=== PATIENT | female | born 1955 | race Caucasian/White ===

== ENCOUNTER 2019-12-15 08:28 | Outpatient (CLI) | payer OTHER, SELFPAY ==
--- NOTE | 2019-12-15 08:53 | ECG_ITS ---
Measurements Intervals [place] Rate: 73 P: 8 WV: 159 QRS: -28 QRSD: 90 T: 22 QT: 368 QTc: 406 Interpretive Statements SINUS RHYTHM INCOMPLETE RIGHT BUNDLE BRANCH BLOCK BORDERLINE ECG Electronically Signed On 12-15-2019 9:07:21 CDT by Robbi Cota D.O.
== END 2019-12-15 08:29 | disposition home or self-care (01) ==
PROVIDERS: PCP Family Medicine; Visit Provider Nurse Practitioner Family
DX: R00.2 Palpitations (principal)
CPT/HCPCS: 93005

== ENCOUNTER 2020-01-05 07:29 | Outpatient (CLI) | payer OTHER, SELFPAY ==
--- NOTE | 2020-01-05 07:55 | ECHO_ITS ---
Patient Info Name: Jennifer Samayoa Age: 64 years : 1955 Gender: Female Ht: 62 in Wt: 163 lbs BSA: 1.82 m2 HR: 80 bpm BP: 120 / 72 mmHg Heart Rhythm: Sinus Rhythm Technical Quality: Good Exam Date: 01/05/2020 8:10 AM Exam Location: [facility] Pulmonary Patient Status: Outpatient Admit Date: 01/05/2020 Staff Ordering Physician: Laurie Davila NP [employer] Manager: Stanford Yan RDCS Attending Provider: Laurie Davila NP Referring Physician: Lola SELLERS; Exam Type: CA echo doppler color flow Study Info Indications R94.31 - Abnormal electrocardiogram ECG EKG Complete two-dimensional, color flow and Doppler transthoracic echocardiogram is performed. Strain analysis performed. History/Risk Factors Abnormal EKG. Summary 1. Complete two-dimensional, color flow and Doppler transthoracic echocardiogram is performed. Recommendations * Normal LV size, mild LVH, normal LV systolic function; ejection fraction 60-65%. Grade 1 diastolic dysfunction. Global longitudinal strain-16%. No significant valvular abnormality. Unable to assess RVSP due to inadequate TR jet velocity. Sinus rhythm. Left Ventricle Left ventricular chamber dimension is normal. Left ventricular systolic function is normal, estimated at 60-65%. There is mildly increased left ventricular wall thickness. Left ventricular septal wall motion is normal. The left ventricular diastolic function is grade I diastolic dysfunction. Right Ventricle Right ventricular chamber dimension is normal. Right ventricular systolic function is normal. Left Atria Left atrial chamber dimension is normal. Right Atria Right atrial chamber dimension is normal. Aortic Valve The aortic valve is normal. There is no aortic valve sclerosis. There is no aortic valve stenosis. There is no aortic valve regurgitation. Pulmonic Valve The pulmonic valve is normal. There is trace pulmonic regurgitation. Mitral Valve The mitral valve has normal leaflets. There is no mitral valve stenosis. There is no mitral valve regurgitation. Tricuspid Valve The tricuspid valve leaflets are normal. There is trace tricuspid valve regurgitation. Pericardium/Pleural The pericardium appears normal. There is no pericardial effusion. Inferior Vena Cava Normal inferior vena cava with >50% collapse upon inspiration consistent with normal right atrial pressure, 5 mmHg. Aorta The aortic root size at the sinus of Valsalva is normal. The prox ascending aorta size is normal. Left Ventricular Outflow Tract Name Value Normal LVOT 2D LVOT Diameter 2.0 cm LVOT Doppler LVOT Peak Gradient 4 mmHg LVOT Mean Gradient 3 mmHg LVOT VTI 20 cm LVOT VTI/AV VTI Ratio 0.7 LVOT Stroke Volume 59 ml LVOT CO 4.5 l/min LVOT CI 2.4 l/min/m2 Mitral Valve N
--- NOTE | 2020-01-05 07:56 | EST_ITS ---
Patient Info Name: Jennifer Samayoa Age: 64 years : 1955 Gender: Female Ht: 62 in Wt: 163 lbs BSA: 1.82 m2 Heart Rhythm: Sinus Rhythm Exam Date: 01/05/2020 9:31 AM Exam Location: [facility] Stress Patient Status: Outpatient Admit Date: 01/05/2020 Staff Ordering Physician: Laurie Davila NP Attending Provider: Laurie Davila NP Exercise Technologist: Alfred Grmaajo RDCS, RT Exam Type: CA stress test treadmill Study Info An exercise stress test was performed. Summary 1. No abnormal ST/T wave changes with exercise. 2. Occasional PVCs noted during stress. 3. Maximal treadmill stress ECG study achieving 114% of age predicted maximum heart rate and 7.7 METS at peak exercise. 4. Average exercise capacity for age. 5. Hypertensive blood pressure response to exercise. 6. [place] treadmill score +6 indicating low risk for adverse cardiovascular events over the next 5 years. Protocol: Flo Stress ECG Details Stage: REST Duration (min): 1 min : 14 sec Speed (mph): 0.0 Grade (%): 0 HR (bpm): 76 SBP (mmHg): 114 DBP (mmHg): 68 METS: --- Stage: REST Duration (min): 9 min : 34 sec Speed (mph): 0.0 Grade (%): 0 HR (bpm): 90 SBP (mmHg): 114 DBP (mmHg): 68 METS: --- Stage: STAGE 1 Duration (min): 1 min : 0 sec Speed (mph): 1.7 Grade (%): 10 HR (bpm): 117 SBP (mmHg): 114 DBP (mmHg): 68 METS: --- Stage: STAGE 1 Duration (min): 2 min : 0 sec Speed (mph): 1.7 Grade (%): 10 HR (bpm): 130 SBP (mmHg): 114 DBP (mmHg): 68 METS: --- Stage: STAGE 1 Duration (min): 3 min : 0 sec Speed (mph): 1.7 Grade (%): 10 HR (bpm): 139 SBP (mmHg): 172 DBP (mmHg): 65 METS: --- Stage: STAGE 2 Duration (min): 1 min : 0 sec Speed (mph): 2.5 Grade (%): 12 HR (bpm): 155 SBP (mmHg): 172 DBP (mmHg): 65 METS: --- Stage: STAGE 2 Duration (min): 2 min : 0 sec Speed (mph): 2.5 Grade (%): 12 HR (bpm): 165 SBP (mmHg): 213 DBP (mmHg): 76 METS: --- Stage: STAGE 2 Duration (min): 3 min : 0 sec Speed (mph): 2.5 Grade (%): 12 HR (bpm): 171 SBP (mmHg): 204 DBP (mmHg): 90 METS: --- Stage: STAGE 3 Duration (min): 0 min : 23 sec Speed (mph): 3.4 Grade (%): 14 HR (bpm): 177 SBP (mmHg): 204 DBP (mmHg): 90 METS: --- Stage: RECOVERY Duration (min): 0 min : 36 sec Speed (mph): 0.0 Grade (%): 0 HR (bpm): 166 SBP (mmHg): 213 DBP (mmHg): 85 METS: --- Stage: RECOVERY Duration (min): 1 min : 36 sec Speed (mph): 0.0 Grade (%): 0 HR (bpm): 137 SBP (mmHg): 213 DBP (mmHg): 85 METS: --- Stage: RECOVERY Duration (min): 2 min : 36 sec Speed (mph): 0.0 Grade (%): 0 HR (bpm): 114 SBP (mmHg): 213 DBP (mmHg): 85 METS: --- Stage: RECOVERY Duration (min): 3 mi
== END 2020-01-05 07:30 | disposition home or self-care (01) ==
PROVIDERS: PCP Family Medicine; Visit Provider Nurse Practitioner Family
DX: R94.31 Abnormal electrocardiogram [ECG] [EKG] (principal)
CPT/HCPCS: 93017; 93306

== ENCOUNTER → 2020-03-10 12:33 | Outpatient (CLI) | payer OTHER, SELFPAY ==
--- NOTE | ~2020-03-10 | MM_ITS ---
EXAMINATION: MM screening loraine BI w beth HISTORY: Screening TECHNIQUE: Craniocaudal and mediolateral oblique 3-D tomosynthesis images were obtained and synthetic 2-D images were generated. CAD analysis was submitted and interpreted. COMPARISON: No prior mammogram is available for comparison at this institution. BREAST PARENCHYMAL COMPOSITION: There are scattered areas of fibroglandular density. FINDINGS: There is no evidence of suspicious mass, calcification, or architectural distortion to sugg est malignancy in either breast. There has been no suspicious interval change. IMPRESSION: 1. No mammographic evidence of malignancy. 2. Recommend routine screening mammography in one year. BI-RADS Category 1: Negative Reviewed, dictated and finalized at location A. HEALTH OUTREACH COORDINATOR
--- NOTE | ~2020-03-10 | DEXA_ITS ---
Bone Density Report Name: Jennifer Samayoa Age: 64 Sex: Female Ethnicity: White Date of : 1955 Indication: postmenopausal; screening for osteoporosis; hysterectomy; Referring Provider: Laurie Davila Study: Bone densitometry was performed. Exam Date: March 10, 2020 Accession number: [id number] Bone Density: Region BMD T-score Z-score Classification AP Spine (L1-L4) 0.960 -0.8 1.1 Normal Femoral Neck (Left) 0.675 -1.6 0.0 Osteopenia Total Hip (Left) 0.792 -1.2 0.1 Osteopenia Femoral Neck (Right) 0.720 -1.2 0.4 Osteopenia Total Hip (Right) 0.883 -0.5 0.8 Normal Total Hip Mean 0.838 -0.9 0.5 Normal World Health Organization criteria for BMD impression classify patients as: Normal (T-score at or above -1.0), Osteopenia (T-score between -1.0 and -2.5), or Osteoporosis (T-score at or below -2.5). 10-year Fracture Risk(1): Major Osteoporotic Fracture 9.3% Hip Fracture 1.1% Reported Risk Factors: [place] (), Neck BMD=0.675, BMI=27.9 (1) FRAX(R) Version 3.08. Fracture probability calculated for an untreated patient. Fracture probability may be lower if the patient has received treatment. Clinical Information Provided by Patient: Has the following medical conditions: Hysterectomy Patient maximum height was 62.0 Menopause Age: 26 No regular weight bearing exercise Does not regularly consume dairy products Drinks caffeinated beverages Onset of menses at age 6 Number of children 0 Impression: The patient has low bone mass, based on the Left Femoral Neck T-score. The patient has an estimated ten-year risk of hip fracture of 1.1% and an estimated ten-year risk of major fracture of 9.3%, based on the WHO FRAX algorithm. Discussion: BONE DENSITY IS LOW AT ONE OR MORE SKELETAL SITES. This patient's lowest T-score is low at one or more skeletal sites. It meets the World Health Organization's (WHO) criteria for ?low bone mass? (T-score between -1.0 and -2.5). The patient's 10-year risk of fracture as calculated by FRAX is less than the threshold where pharmacological therapy is recommended by the National Osteoporosis Foundation (NOF). However, all treatment decisions require clinical judgment and consideration of individual patient factors, including patient preferences, comorbidities, previous drug use, risk factors not captured in the FRAX model (e.g., frailty, falls, vitamin D deficiency, increased bone turnover, interval significant decline in bone density) and possible under or overestimation of fracture risk by FRAX. The patient should follow a healthful lifestyle (good nutrition with adequate calcium and vitamin D, and appropriate weight-bearing exercise). Follow-Up: Consider repeating this study in 2 to 3 years to reassess this patient's status, or sooner if there is some new
== END ==
PROVIDERS: PCP Nurse Practitioner Family; Visit Provider Nurse Practitioner Family
DX: Z12.31 Encounter for screening mammogram for malignant neoplasm of breast (principal); Z13.820 Encounter for screening for osteoporosis; M85.852 Other specified disorders of bone density and structure, left thigh; M85.851 Other specified disorders of bone density and structure, right thigh
CPT/HCPCS: 77063; 77067; 77080

== ENCOUNTER 2023-03-05 01:09 | Day surgery (SDC) | payer MEDICARE, OTHER, SELFPAY ==
[2023-03-04 10:47] VITALS: BMI 25.0
[2023-03-05 09:13] VITALS: BP 129/83; PULSE 89; RESP 17; TEMP 35.5; O2SAT 100; BMI 25.0
[2023-03-05] MEDS: LACTATED RINGERS 1,000 ML 150 ML IV CONT (09:22)
[2023-03-05 09:23] LABS: Glucose Point of Care 75 mg/dl (65-105)
--- NOTE | 2023-03-05 09:41 | PM.HPGS ---
History of Present Illness History of Present Illness Consent: Risks, benefits, and alternatives have been discussed and questions answered. Patient agrees to proceed with procedure. Chief complaint: dysphagia Narrative: Jennifer Samayoa is a 67 year old female with dysphagia, having sometimes hard times to swallow large pills. Never had EGD Review of Systems Constitutional: Constitutional: Denies headache(s) and Denies weakness Eyes: Eyes: Denies blurry vision ENT: Reports Normal hearing present, Denies headache(s) and Denies neck pain Cardiovascular: Cardiovascular: Denies chest pain and Denies dyspnea Respiratory: Respiratory: Denies dyspnea Gastrointestinal: Gastrointestinal: Reports no additional gastrointestinal complaints Genitourinary: Genitourinary: Denies dysuria Musculoskeletal: Musculoskeletal: Denies neck pain Integumentary/Breasts: Skin/Breast: Denies dry skin Neurologic: Reports Normal hearing present, Denies headache(s) and Denies weakness Psychiatric: Psychiatric: Denies anxiety Endocrine: Endocrine: Denies change in body appearance Hematologic/Lymphatic: Hematologic/Lymphatic: Denies easy bleeding Allergic/Immunologic: Allergic/Immunologic: Denies urticaria PMFSH Past Medical History Medical History Atypical mole BMI 24.0-24.9, adult BMI 25.0-25.9,adult BMI 26.0-26.9,adult Family History Family History Mother Hypertension Family history of arthritis Cerebrovascular accident Dementia Father Family history of heart disease in male family member before age 55 Grandparent Diabetes mellitus Sibling Diabetes mellitus Social History Social History Smoking status: Never smoker Second hand tobacco smoke exposure: No Alcohol intake: former Substance use: never Substance use type: does not use Lack of Transportation: No Lack of Food: Never True Current Housing: I Have Housing Concerned About Future Housing: No Difficulty Paying Gas/Electric Bills: No Difficulty Paying for Meds: No Currently Unemployed: No Education: High School Diploma/GED Difficulty w/ Childcare or Family Care: No Living arrangements: alone Occupation/Education: retired Additional occupation/education comments: [employer] Gender identity (if verbalized by the patient): Female Meds Home Medications and Allergies Home Medications Medication Instructions Recorded Confirmed Type insulin detemir U-100 100 unit/mL 70 unit subcut DAILY 04/08/19 03/05/23 History (3 mL) subcutaneous pen (Levemir FlexTouch U-100 Insulin) levothyroxine 50 mcg tablet 50 mcg PO DAILY 04/08/19 03/05/23 History (Synthroid) metformin 1,000 mg tablet 1,000 mg PO BID 04/08/19 03/05/23 History semaglutide 1 mg/dose (2 mg/1.5 1 mg subcut WEEKLY 04/08/19 03/05/23 History mL) subcutaneous pen injector (Ozempic) icosapent ethyl 1 gram capsule 2 g PO BID #1 cap 12/14/19 03/05/23 Rx (Vascepa) atorvastatin 20 mg tablet 20 mg PO DAILY 03/21/22 03/05/23 History furosemide 20 mg tablet See Rx Instructions .Route 11/22/22 03/05/23 Rx .COMPLEX #90 tabs lisinopril 10 1 tablet PO DAILY #90 tabs 11/22/22 03/05/23 Rx mg-hydrochlorothiazide 12.5 mg tablet Allergies Allergy/AdvReac Type Severity Reaction Status Date / Time No Known Allergies Allergy Verified 03/05/23 09:11 Vital Signs Vital Signs - 24 hr 03/05/23 09:13 Temperature 96 F L Pulse Rate 89 Respiratory Rate 17 Blood Pressure 129/83 Pulse Oximetry 100 Oxygen Delivery Room Air Exam Const: General: comfortable and no acute distress HENMT: Face/Nose/Sinus: Normal nares present Eyes: General: appearance normal, both eyes and all related structures Neck: Neck: no JVD Resp: Auscultation: clear to auscultation bi
--- NOTE | 2023-03-05 09:42 | WPDANESEPPF ---
Anes - Initial Pre Proc Eval Procedure: Operation Date: 03/05/23 10:30 Proposed Procedures p Esophagogastroduodenoscopy - Bernard Monk MD Date/Time: 03/05/23 09:42 Surgeon: Bernard Monk MD Pre Op Diagnosis: dysphagia Patient Data Age: 67 Gender: F Height: 1.57 m Weight: 62.2 kg Last Vital Signs Temp 96 F L 03/05/23 09:13 Pulse 89 03/05/23 09:13 Resp 17 03/05/23 09:13 BP 129/83 03/05/23 09:13 Pulse Ox 100 03/05/23 09:13 O2 Del Method Room Air 03/05/23 09:13 Allergies Allergy/AdvReac Type Severity Reaction Status Date / Time No Known Allergies Allergy Verified 03/05/23 09:11 Home Medications Medication Instructions Recorded Confirmed Type insulin detemir U-100 100 unit/mL 70 unit subcut DAILY 04/08/19 03/05/23 History (3 mL) subcutaneous pen (Levemir FlexTouch U-100 Insulin) levothyroxine 50 mcg tablet 50 mcg PO DAILY 04/08/19 03/05/23 History (Synthroid) metformin 1,000 mg tablet 1,000 mg PO BID 04/08/19 03/05/23 History semaglutide 1 mg/dose (2 mg/1.5 1 mg subcut WEEKLY 04/08/19 03/05/23 History mL) subcutaneous pen injector (Ozempic) icosapent ethyl 1 gram capsule 2 g PO BID #1 cap 12/14/19 03/05/23 Rx (Vascepa) atorvastatin 20 mg tablet 20 mg PO DAILY 03/21/22 03/05/23 History furosemide 20 mg tablet See Rx Instructions .Route 11/22/22 03/05/23 Rx .COMPLEX #90 tabs lisinopril 10 1 tablet PO DAILY #90 tabs 11/22/22 03/05/23 Rx mg-hydrochlorothiazide 12.5 mg tablet Laboratory Tests 03/05/23 09:17 POC Capillary Glucose 75 mg/dl (65-105) Patient hx anesthesia problems: none Family hx anesthesia problems: none Results Review: All pre-operative results and documents have been reviewed as part of the pre-operative evaluation. [facility] Past Medical History Medical History Atypical mole BMI 24.0-24.9, adult BMI 25.0-25.9,adult BMI 26.0-26.9,adult Family History Family History Mother Hypertension Family history of arthritis Cerebrovascular accident Dementia Father Family history of heart disease in male family member before age 55 Grandparent Diabetes mellitus Sibling Diabetes mellitus Social History Social History Smoking status: Never smoker Second hand tobacco smoke exposure: No Alcohol intake: former Substance use: never Substance use type: does not use Lack of Transportation: No Lack of Food: Never True Current Housing: I Have Housing Concerned About Future Housing: No Difficulty Paying Gas/Electric Bills: No Difficulty Paying for Meds: No Currently Unemployed: No Education: High School Diploma/GED Difficulty w/ Childcare or Family Care: No Living arrangements: alone Occupation/Education: retired Additional occupation/education comments: [employer] education Gender identity (if verbalized by the patient): Female Anes - Evsteve Final PreProcedure Day of Procedure 03/05/23 09:42 Patient weight: normal Heart: regular rate and rhythm Lungs: clear to auscultation Airway: Mallampati scale class II Neurological: alert and oriented Last oral intake: >/= 8 hours ASA classification: III Emergent: no Anesthetic plan: proceed Anesthesia type and monitoring: general GIVS and standard monitoring Results Review: All pre-operative results and documents have been reviewed as part of the pre-operative evaluation. Informed Consent: The patient's anesthetic plan and its attendant risks and benefits were discussed with the patient/family/POA. Questions were solicited and answers provided to the satisfaction of the patient/family/POA.
[2023-03-05 09:57] VITALS: BP 107/65; PULSE 82; RESP 14; O2SAT 100
[2023-03-05 10:07] VITALS: BP 116/66; PULSE 79; RESP 16; O2SAT 100
[2023-03-05 10:17] VITALS: BP 138/75; PULSE 73; RESP 20; O2SAT 100
[2023-03-05 10:19] LABS: Glucose Point of Care 59 mg/dl (65-105)
[2023-03-05 10:22] LABS: Glucose Point of Care 60 mg/dl (65-105)
[2023-03-05 10:34] LABS: Glucose Point of Care 63 mg/dl (65-105)
--- NOTE | 2023-03-05 10:36 | SUR.PHASEII ---
blood sugar was 57 post op pt asymptomatic, Dr Garcia aware, pt drank juice 60 , pt requested regular pepsi she drank half blood sugar now [address] Garcia stated ok for her to go home, told pt to eat when she gets home.
== END 2023-03-05 10:40 | disposition home or self-care (01) ==
PROVIDERS: PCP Family Medicine; Referring Provider Nurse Practitioner Family; Visit Provider Internal Medicine Gastroenterology
PROC: 0DJ08ZZ Inspection of Upper Intestinal Tract, Via Natural or Artificial Opening Endoscopic (ICD-10-PCS; CPT 43235; principal; 2023-03-05 10:30)
DX: K22.2 Esophageal obstruction (principal); K44.9 Diaphragmatic hernia without obstruction or gangrene; Z79.4 Long term (current) use of insulin; Z79.84 Long term (current) use of oral hypoglycemic drugs; Z79.85 Long-term (current) use of injectable non-insulin antidiabetic drugs
CPT/HCPCS: 43239; 82948; C1726; J2704; J7120

== ENCOUNTER 2023-08-02 10:00 | Outpatient (RCR) | payer MEDICARE, OTHER, SELFPAY ==
--- NOTE | 2023-07-05 11:01 | OPREHPOC ---
Outpatient Therapy Plan of Care This is a Multidisciplinary Plan of Care that may contain components documented by all disciplines (PT, OT, and ST.) PT Problem 1 PT Problem #1 Knowledge Deficit PT Goal 1 Goal *indep with HEP Target Visit 5 PT Problem 2 PT Problem #2 Pain PT Goal 1 Goal 1* pt report pain L knee of 2/10 at worst with increased activity level 2* self assessment LE functional scale of 20% limitation in activity 3* pt report able to walk 30 minutes without pain increase Target Visit 5 PT Problem 3 PT Problem #3 Impaired Flexibility PT Goal 1 Goal increase knee extension to improve walking pattern : in supine (-5') 1* R 2 * L Target Visit 5 PT Problem 4 PT Problem #4 Impaired Strength PT Goal 1 Goal increase strength of hips and knees to improve mobility and support to knee joint: 1*mat strengthening exercises x 20 reps R and L LE 2* single leg standing with good stability L x 20 seconds Target Visit 5
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
--- NOTE | 2023-08-02 10:40 | PTOPDC ---
Assessment and note entered by Soledad Cutler, PT Discharge Report Assessment Status Discharge Diagnosis bilateral OA of knees Onset over 1 year ago Subjective Information knees are stronger and doing better; walking straighter; doing the exercises at home; Reported Pain Level Pain Score Self Report Additional Pain Score Comments with flexion of L knee increase pain to 2/10; no pain in R knee pain range 0-2/10 with walking, do not have knee pain; have some stiffness in the morning; Assessment PT Clinical Summary Meg has received 5 PT sessions. Compared to the initial evaluation: pain rating same of L knee 0-2/10; LE functional scale 26% to 15% limitation in activity level; increase reported walking time before pain increase from 30 minutes to no pain with walking; gait pattern improved with knee in more extended position; increase strength of both LE's; education for home exercises. The goals were achieved. DIscharge PT services. Plan of Care PT Services Indicated No
== END 2023-09-18 13:04 | disposition home or self-care (01) ==
LOC: ANHPT 10:00
PROVIDERS: PCP Family Medicine; Visit Provider Orthopaedic Surgery
DX: M17.0 Bilateral primary osteoarthritis of knee (principal)
CPT/HCPCS: 97110; 97116; 97140; 97161; 97530

== ENCOUNTER 2024-01-13 14:25 | Outpatient (CLI) | payer MEDICARE, OTHER, SELFPAY ==
--- NOTE | ~2024-01-13 | DEXA_ITS ---
Bone Density Report Name: MARTIN FLOREZ Age: 68 Sex: Female Ethnicity: White Date of : 1955 Indication: postmenopausal; screening for osteoporosis; hysterectomy; rheumatoid arthritis; Referring Provider: Laxmi Maddox Study: Bone densitometry was performed. Exam Date: January 13, 2024 Accession number: [id number] Bone Density: Region BMD T-score Z-score Classification AP Spine(L1-L4) 0.944 -0.9 1.2 Normal Femoral Neck (Left) 0.705 -1.3 0.5 Osteopenia Total Hip (Left) 0.699 -2.0 -0.5 Osteopenia Femoral Neck (Right) 0.738 -1.0 0.8 Normal Total Hip (Right) 0.850 -0.8 0.8 Normal Femoral Neck Mean 0.721 -1.1 0.7 Osteopenia Total Hip Mean 0.775 -1.4 0.2 Osteopenia World Health Organization criteria for BMD impression classify patients as: Normal (T-score at or above -1.0), Osteopenia (T-score between -1.0 and -2.5), or Osteoporosis (T-score at or below -2.5). 10-year Fracture Risk(1): Major Osteoporotic Fracture 12% Hip Fracture 1.8% Reported Risk Factors: [place] (), Neck BMD=0.705, BMI=26.2, rheumatoid arthritis (1) FRAX(R) Version 3.08. Fracture probability calculated for an untreated patient. Fracture probability may be lower if the patient has received treatment. Clinical Information Provided by Patient: Has rheumatoid arthritis Has the following medical conditions: Hysterectomy Patient maximum height was 62 Menopause Age: 17 No regular weight bearing exercise Does not regularly consume dairy products Drinks caffeinated beverages Onset of menses at age 16 Number of children 0 Impression: The patient has low bone mass, based on the Left Total Hip T-score. Discussion: BONE DENSITY IS LOW AT ONE OR MORE SKELETAL SITES. This patient's lowest T-score is low at one or more skeletal sites. It meets the World Health Organization's (WHO) criteria for ?low bone mass? (T-score between -1.0 and -2.5). The patient's 10-year risk of fracture as calculated by FRAX is less than the threshold where pharmacological therapy is recommended by the National Osteoporosis Foundation (NOF). However, all treatment decisions require clinical judgment and consideration of individual patient factors, including patient preferences, comorbidities, previous drug use, risk factors not captured in the FRAX model (e.g., frailty, falls, vitamin D deficiency, increased bone turnover, interval significant decline in bone density) and possible under or overestimation of fracture risk by FRAX. The patient should follow a healthful lifestyle (good nutrition with adequate calcium and vitamin D, and appropriate weight-bearing exercise). Follow-Up: Consider repeating this study in 2 to 3 years to reassess this patient's status, or sooner if there is some new clinical indication. Reported by: EDI on 01/13/2024 2:44:00 PM. Reviewed, dictated and finalized at location A.
== END 2024-01-13 14:26 | disposition home or self-care (01) ==
LOC: CHSIMG 14:27
PROVIDERS: PCP Family Medicine; Visit Provider Internal Medicine Endocrinology, Diabetes & Metabolism
DX: Z78.0 Asymptomatic menopausal state (principal); M85.89 Other specified disorders of bone density and structure, multiple sites
CPT/HCPCS: 77080

== ENCOUNTER 2024-01-27 08:59 | Outpatient (CLI) | payer MEDICARE, OTHER, SELFPAY ==
--- NOTE | ~2024-01-27 | NM_ITS ---
EXAMINATION: NM parathyroid w imaging DATE: 01/27/2024 13:40 INDICATION: Hyperparathyroidism. TECHNIQUE: 20.6 mCi Tc99m sestamibi was administered intravenously. Anterior images of the neck were obtained immediately and at 3 hours. SPECT images of the neck were obtained. COMPARISON: None. FINDINGS: There is no focus of persistent activity in the area of the thyroid or mediastinum to sugge st parathyroid adenoma. IMPRESSION: 1. No evidence of a parathyroid adenoma. Reviewed, dictated and finalized at location A. MIGRATION LEAD
== END 2024-01-27 09:00 | disposition home or self-care (01) ==
PROVIDERS: PCP Family Medicine; Visit Provider Internal Medicine Endocrinology, Diabetes & Metabolism
DX: D35.1 Benign neoplasm of parathyroid gland (principal); E83.52 Hypercalcemia
CPT/HCPCS: 78070; A9500

== ENCOUNTER 2024-07-14 08:00 | Outpatient (RCR) | payer MEDICARE, OTHER, SELFPAY ==
--- NOTE | 2024-06-16 09:59 | OPREHPOC ---
Outpatient Therapy Plan of Care This is a Multidisciplinary Plan of Care that may contain components documented by all disciplines (PT, OT, and ST.) PT Problem 1 PT Problem #1 Knowledge Deficit PT Goal 1 Goal / Goal Update [place] with HEP Target Visit 4 PT Problem 2 PT Problem #2 Impaired Gait PT Goal 1 Goal / Goal Update 1. Demonstrate improved foot clearance through gait cycle of 200 feet or more 2. improve 2 minute walk test to 500+ feet Target Visit 8 PT Problem 3 PT Problem #3 Impaired Strength PT Goal 1 Goal / Goal Update 1. Improve raquel hip flexors to 4+./5 to improve foot clearance with gait cycle 2. Improve raquel hip abduction strength to 4/5 to improve lateral stability with gait and directional change Target Visit 8
--- NOTE | 2024-06-16 10:00 | PTOPEVAL1 ---
Assessment and note entered by Anival Paige, PT Evaluation Information Assessment Status Evaluation ICD-10 Condition Codes (PT) Repeated falls R29.6,Dizziness and Giddiness R42 Onset March 2024 Subjective Information Reports that about 2 months ago she had a fall and fell forward. She has had a history of repeated falls in the past and has been through therapy before which helped. She recently showed a high positive for Lupus at this time which is a new diagnosis. She will not be able to get into the [facility] for about 3 months. Denies any blackouts or spinning at this time. She has a lot of trouble walking long distances and struggles to go shopping. Denies trouble sleeping. Feels like when she hydrates she does a lot better. She has recently cut back a lot on her salt. Reported Pain Level Pain Score 0: Self Report Assessment PT Clinical Summary Patient presents with poor hip mobility, weakness, and altered gait pattern with Trendelenburg noted . Patient did not show significant vestibular deficits this date, but did present with weakness, poor endurance, and poor foot clearance. Patient will benefit forms killed therapy at this time to address these deficits for improve ambulation, endurance, and functional stability. Plan of Care Interventions Gait Training,Hot Pack/Cold Pack,Manual Therapy, Neuro Re-education,Therapeutic Activities, Therapeutic Exercise PT Services Indicated Yes Treatment Frequency and 2x/week for 8 visits Duration These treatments will address the objective and functional deficits as defined above. The patient will be advanced safely and appropriately in order for the patient to progress towards his/her prior level of function. Additional exercises will be introduced and as well as a comprehensive home exercise program upon discharge, if needed, to ensure carryover of functional gains achieved in the clinic. This treatment plan has been reviewed and agreement upon by the patient.
--- NOTE | 2024-07-14 08:37 | OPREHPOC ---
Outpatient Therapy Plan of Care This is a Multidisciplinary Plan of Care that may contain components documented by all disciplines (PT, OT, and ST.) PT Problem 1 PT Problem #1 Knowledge Deficit PT Goal 1 Goal / Goal Update [place] with HEP Target Visit 4 Progress Met PT Problem 2 PT Problem #2 Impaired Gait PT Goal 1 Goal / Goal Update 1. Demonstrate improved foot clearance through gait cycle of 200 feet or more 2. improve 2 minute walk test to 500+ feet Target Visit 8 Progress Met PT Problem 3 PT Problem #3 Impaired Strength PT Goal 1 Goal / Goal Update 1. Improve raquel hip flexors to 4+./5 to improve foot clearance with gait cycle 2. Improve raquel hip abduction strength to 4/5 to improve lateral stability with gait and directional change Target Visit 8 Progress Partially Met
--- NOTE | 2024-07-14 08:37 | PTOPEVAL1 ---
Assessment and note entered by Anival Paige, PT Evaluation Information Assessment Status Discharge ICD-10 Condition Codes (PT) Repeated falls R29.6,Dizziness and Giddiness R42 Onset March 2024 Subjective Information Reports that overall she is doing much better but she is still having trouble with distances. Reports that she feels that her feet are still heavy and they fatigue more quickly with walking. She was told by rn licensed practical that she luis antonio not have lupus, but they believe that it is possibly spinal stenosis. Reported Pain Level Pain Score 0: Self Report Assessment PT Clinical Summary Patient has shown both functional and objective improvement at this time. She has a good understanding of exercise progression to continue to work on lumbar decompression and mobility training. Suitable for discharge at this time to [facility]. Plan of Care Interventions Gait Training,Hot Pack/Cold Pack,Manual Therapy, Neuro Re-education,Therapeutic Activities, Therapeutic Exercise PT Services Indicated Yes Treatment Frequency and 2x/week for 8 visits Duration These treatments will address the objective and functional deficits as defined above. The patient will be advanced safely and appropriately in order for the patient to progress towards his/her prior level of function. Additional exercises will be introduced and as well as a comprehensive home exercise program upon discharge, if needed, to ensure carryover of functional gains achieved in the clinic. This treatment plan has been reviewed and agreement upon by the patient.
== END 2024-07-14 11:06 | disposition home or self-care (01) ==
LOC: ANHGOSHPT 08:00
PROVIDERS: Visit Provider Physician Assistant Medical
DX: R29.6 Repeated falls (principal); R42 Dizziness and giddiness
CPT/HCPCS: 97110; 97112; 97161

== ENCOUNTER 2024-07-21 14:09 | Outpatient (CLI) | payer MEDICARE, OTHER, SELFPAY ==
--- NOTE | ~2024-07-21 | MR_ITS ---
MRI of the brain Clinical History: Amnesia Technique: Axial and sagittal T1-weighted images were acquired. These were followed by axial T2-weigh barbara, diffusion weighted, gradient, and FLAIR images. Following intravenous administration of 12 cc Pr oHance gadolinium, T1-weighted fat-sat imaging was performed in the axial and coronal planes. Findings: Possible 6 mm focal area of restricted diffusion in the anterior right periventricular whit e matter, which could reflect focal acute infarct. Otherwise, there is moderate to severe background chronic microvascular ischemic change in the periventricular white matter bilaterally, and in the neo s. No intracranial hemorrhage or mass lesion. Ventricles and subarachnoid spaces are dilated. Orbits are unremarkable. Paranasal sinuses and mastoi d air cells are clear. Major intracranial flow voids are intact. Sagittal midline structures are intact. No abnormal postcontrast enhancement identified. IMPRESSION: Suspected 6 mm acute infarct in the anterior right periventricular white matter. Moderate to severe chronic microvascular ischemic change and mild to moderate generalized atrophy. Reviewed, dictated and finalized at location . IMPRESSION: Suspected 6 mm acute infarct in the anterior right periventricular white matter . Moderate to severe chronic microvascular ischemic change and mild to moderate g eneralized atrophy.
--- OUTSIDE RECORDS SUMMARY | 2024-07-21 14:17 | XMS_ITS | Clinical Summary ---
Author Organization [facility] Address [address] [place]: Epic Prelude ADT [place] [id number] Care Team Providers Care Profile Trimmer Name Role Phone Unavailable Primary Care Provider Unavailabl e Social History Tobacco Use Types Packs/Day Years Used Date Smoking Tobacco: Never Assessed Comments Unknown Sex and Gender Information Value Date Recorded Sex Assigned at Not on file Legal Sex Female 3:35 AM [employer] REPA[employer] Gender Identity Not on file Sexual Orientation Not on file Plan of Treatment Health Maintenance Due Date Last Done Comments DTAP/TDAP/TD VACCINES (1 - Tdap) 1972 COLORECTAL SCREENING 1998 Colorectal Cancer Screening 1998 FIT-DNA Q 3 years 1998 FIT/FOBT Q 1 year 1998 Flex Sig/CT Colonography Q 5 years 1998 PNEUMOCOCCAL VACCINE 50+ YEARS (1 of 1 - PCV) 04/14/19 04 ZOSTER VACCINE (1 of 2) 2003 BREAST CANCER SCREENING 07/25/2012 07/26/2011 OSTEOPOROSIS SCREENING 2018 INFLUENZA VACCINE (#1) 2023 RSV VACCINE (60+ or ) (1 - 1-dose 75+ series) 2028 Procedures Procedure Name Priority Date/Time Associated Diagnosis Comments MAMMO SCREEN BILAT W OR WO CAD Routine 07/26/2011 from Last 3 Months or Most Recently Relevant to Health Maintenance Results * MAMMO DIGITAL SCREEN BILAT (07/26/2011) Anatomical Region Laterality Modality Breast Bilateral Other Kendrick Suarez Sr., MD MAMMO ORDERABLES Soraida l Result from Last 3 Months or Most Recently Relevant to Health Maintenance
--- OUTSIDE RECORDS SUMMARY | 2024-07-21 14:17 | XMS_ITS | Data Portability ---
Author Organization [facility], Main Office Address [address] [place] [address] Care Team Providers Care Binding Printer Name Role Phone THIAGO HAWTHORNE Primary Care Provider THIAGO HAWTHORNE Referring Provider [phone] Assessment Encounter Date Assessment Date Assessment LastModified by Organization Details LastModified Time 03/21/2023 03/21/2023 HPI: Patient returns. She had a cortisone injection into her left knee in early November , she has a mild lateral compartment osteoarthritis. Shock very well for her. She has been taking ibuprofen 400 mg twice a day. She has been modifying activities at this point the knee continues to do very well. She is having minimal amounts of discomfort and pain in it. She was initially scheduled to come in for a cortisone injection but at this point she does not feel her symptoms are bad enough that she wishes to have another injection. She is going to continue with activity modification and the ibuprofen. we talked about repeating shot in the future if her symptoms worsen and she will keep that in mind but otherwise she is doing very well. We will see her back as needed her as needed [email or web address] Not available 03/21/2023 10:04:08 09/03/2023 09/03/2023 This note is dictated and transcribed by [employer] Direct [employer]. Piece Worker variances may occur. Despite proofreading, typographical errors may occur. Occasional wrong-word or '[id number]' substitutions may have occurred due to the inherent limitations of voice recording. Read the chart carefully and recognize, using context, where substitutions have occurred. Not available 09/03/2023 10:40:02 Plan of Treatment Reminders Order Date Submit Date Provider Last Modified By Organization Details Last Modified Time Details Appointments None recorded. Lab None recorded. Referral None recorded. Procedures None recorded. Surgeries None recorded. Imaging None recorded. Medication Orders gentamicin 0.1 % topical ointment 2023 024 [facility]/Pharmacy #[id number], [address], [place], [address], 4 10:01:49 ketoconazol e 2 % topical cream 2023 024 [facility]/Pharmacy #[id number], [address], [place], [address], 4 10:33:49 Patient TargetsNo targets recorded. Patient Instructions Encounter Date Encounter Id Patient Instructions Last Modified By Organization Details Last Modified Time 04/25/2023 [id number] paronychia: care instructions Not available 04/25/2023 10:01:47 Reason for Referral None Reported. Problems Name Problem SNOMED Code Status Onset Date Resolution Date Notes Provider Name and Address Organization Details Recorded Time Hammer toe 526340726 Completed 201711/17/2018 Not Available [facility] 3 07:31:51 Hammer toe 509206180 Active 2017 Not Available [facility] 3 07:31:51 Tinea cruris 190687609 Active Not Available [facility] 3 07:31:51 Pain of left knee joint 92729570746 4107 Active 2021 Not Available [facility] 3 07:31:51 Tinea pedis 2871278 Active 2018 Not Available [facility] 3 07:31:51 Vulvitis 71007095 Active Not Available [facility] 3 07:31:51 Diabetes mellitus 33261754 Active Not Available [facility] 3 07:31:51 Onychomyc osis of toenails 033462319 Active 2023 Alfred French, PIERO [address] [facility], [address], [place], [address] , [facility] [employer] [facility] 4 10:32:58 Notes:thyroid disease Problem Notes None recorded. Procedures Surgical History Date Name Laterality Status Provider Name and Address Organization Details Recorded Time Toenail avulsion completed Alfred French DPM [address] [facility], [address], [place], [address], [facility] [employer] 04/25/2023 10:03:36 Foot Surgery completed DEJON Pereyra [facility] [employer] 04/02/2023 09:08:47 Imaging Results None recorded. Procedure Notes None recorded. Medical Equipment None Reported. Allergies No known drug allergies Medications Name Sig Start Date Stop Date Status Note LastModified by Organization Details LastModified Time metformin 500 mg tablet TAKE 1 PILL IN THE MORNING WITH FOOD AND 1 PILL IN THE EVENING WITH FOOD. active Not Available Not Available No t Available atorvastati n 20 mg tablet TAKE 1 TABLET BY MOUTH EVERY DAY active Not Available Not Available No t Available tizanidine 2 mg tablet TAKE 1 TABLET BY MOUTH 2 TIMES DAILY NEEDED. 12/13 completed Not Available Not Available Not Available azithromyci n 250 mg tablet 11/02 completed Not Available Not Available Not Available fluconazole 150 mg tablet TAKE 1 TABLET BY MOUTH EVERY 3 DAYS FOR 2 DOSES 11/02 completed Not Available Not Available Not Available metoprolol succinate ER 50 mg tablet,exte nded release 24 hr TAKE 1 TABLET BY MOUTH DAILY 11/02 completed Not Available Not Available Not Available hydrocodone 5 mg-acetamin ophen 325 mg tablet PLEASE SEE ATTACHED FOR DETAILED DIRECTION S 12/13 completed Not Available Not Available Not Available fluconazole 200 mg tablet Take 1 tablet every day by oral route for 7 days. 11/02 completed Not Available Not Available Not Available niacin ER 500 mg tablet,exte nded release 24 hr TAKE ONE CAPSULE EVERY EVENING 11/02 completed Not Available Not Available Not Available metronidazo le 500 mg tablet TAKE 1 TABLET BY MOUTH TWICE A DAY FOR 7 DAYS 12/13 completed Not Available Not Available Not Available acetaminoph en 300 mg-codeine 30 mg tablet 11/02 completed Not Available Not Available Not Available clopidogrel 75 mg tablet TAKE 1 TABLET BY MOUTH EVERY DAY active Not Available Not Available No t Available ciprofloxac in 500 mg tablet TAKE 1 TABLET BY ORAL ROUTE EVERY 12 HOURS 11/02 completed Not Available Not Available Not Available omeprazole 40 mg capsule,del ayed release TAKE 1 CAPSULE BY MOUTH EVERYDAY AT BEDTIME active Not Available Not Available No t Available oxycodone-a cetaminophe n 5 mg-325 mg tablet 12/13 completed Not Available Not Available Not Available Kenalog 10 mg/mL suspension for injection in office 04/02 completed [facility]: [phone] Not Available Not Available Not Available meclizine 25 mg tablet TAKE 1 TABLET BY MOUTH THREE TIMES A DAY NEEDED 12/13 completed Not Available Not Available Not Available amlodipine 10 mg tablet TAKE 1 TABLET BY MOUTH EVERY DAY 09/02 completed Not Available Not Available Not Available benzonatate 100 mg capsule 11/02 completed Not Available Not Available Not Available levothyroxi ne 50 mcg tablet TAKE 1 TABLET BY MOUTH DAILY active Not Available Not Available No t Available cephalexin 500 mg capsule 11/02 completed Not Available Not Available Not Available pantoprazol e 40 mg tablet,shannan yed release TAKE 1 TABLET BY MOUTH EVERY DAY 05/01 completed Not Available Not Available Not Available metformin 1,000 mg tablet TAKE 1 TABLET BY ORAL ROUTE 2 TIMES EVERY DAY WITH MORNING AND EVENING MEALS 11/02 completed Not Available Not Available Not Available clotrimazol e-betametha sone 1 %-0.05 % topical cream APPLY TO AFFECTED & SURROUNDI NG AREAS OF SKIN LEFT FOOT 2 X PER DAY IN THE AM AND PM FOR 2 WKS active Not Available Not Available No t Available olopatadine 0.1 % eye drops INSTILL 1 DROP INTO BOTH EYES TWICE A DAY 11/02 completed Not Available Not Available Not Available lansoprazol e 30 mg capsule,del ayed release TAKE 1 CAPSULE BY MOUTH EVERY DAY 12/13 completed Not Available Not Available Not Available Ear Drops (carbamide peroxide) 6.5 % INSTILL 5 TO 10 DROPS TWICE DAILY UP TO 4 DAYS. 04/02 completed Not Available Not Available Not Available gabapentin 300 mg capsule TAKE 1 CAPSULE BY MOUTH EVERY DAY AT NIGHT 05/01 completed Not Available Not Available Not Available sertraline 25 mg tablet TAKE 1 TABLET BY MOUTH EVERY DAY 05/01 completed Not Available Not Available Not Available omeprazole 20 mg capsule,del ayed release 11/02 completed Not Available Not Available Not Available niacin ER 500 mg capsule,ext ended release TAKE ONE CAPSULE EVERY EVENING 11/02 completed Not Available Not Available Not Available acetaminoph en 300 mg-codeine 60 mg tablet TAKE 1 TABLET BY MOUTH THREE TIMES A DAY NEEDED FOR CHRONIC PAIN 05/01 completed Not Available Not Available Not Available pravastatin 20 mg tablet TAKE 1 TABLET BY MOUTH EVERY DAY 11/02 completed Not Available Not Available Not Available furosemide 20 mg tablet TAKE 1 TABLET BY MOUTH ONCE DAILY IN THE MORNING active Not Available Not Available No t Available metoprolol succinate ER 25 mg tablet,exte nded release 24 hr TAKE 1 TABLET (25 MG TOTAL) BY MOUTH DAILY. 12/13 completed Not Available Not Available Not Available clobetasol 0.05 % topical ointment 12/13 completed Not Available Not Available Not Available lisinopril 10 mg-hydrochl orothiazide 12.5 mg tablet TAKE 1 TABLET BY MOUTH EVERY DAY active Not Available Not Available No t Available zolpidem 10 mg tablet TAKE 1 TABLET BY MOUTH ONCE AT BEDTIME FOR INSOMNIA active Not Available Not Available No t Available scopolamine 1 mg over 3 days transdermal patch APPLY 1 PATCH ONTO THE SKIN EVERY 3 DAYS NEEDED FOR MOTION SICKNESS 12/13 completed Not Available Not Available Not Available methylpredn isolone 4 mg tablets in a dose pack TAKE 1 TABLET (4 MG TOTAL) BY MOUTH SEE ADMINISTR ATION INSTRUCTI ONS. FOLLOW PACKAGE DIRECTION S 12/13 completed Not Available Not Available Not Available ketoconazol e 2 % topical cream APPLY 1 APPLICATI ON ONTO THE AFFECTED TOENAIL(S ) ONCE DAILY active Not Available Not Available No t Available ondansetron 4 mg disintegrat ing tablet TAKE 1 TABLET BY MOUTH THREE TIMES A DAY NEEDED FOR NAUSEA OR VOMITING 05/01 completed Not Available Not Available Not Available metformin ER 500 mg tablet,exte nded release 24 hr TAKE 4 TABLETS BY MOUTH AT BEDTIME active Not Available Not Available No t Available gentamicin 0.1 % topical ointment APPLY A SMALL AMOUNT TO AFFECTED AREA 3 TIMES A DAY active Not Available Not Available No t Available naproxen 500 mg tablet TAKE 1 TABLET BY MOUTH TWICE A DAY WITH FOOD 11/02 completed Not Available Not Available Not Available diazepam 5 mg tablet TAKE 1 TABLET (5 MG TOTAL) BY MOUTH ONCE FOR 1 DOSE. TAKE 1 TABS 1 HOUR PRIOR TO PROCEDURE 12/13 completed Not Available Not Available Not Available amoxicillin 875 mg-potassiu m clavulanate 125 mg tablet TAKE 1 TABLET (875 MG TOTAL) BY MOUTH 2 (TWO) TIMES DAILY FOR 1 DAY. 12/13 completed Not Available Not Available Not Available rosuvastati n 10 mg tablet TAKE 1 TABLET EVERY DAY 11/02 completed Not Available Not Available Not Available rosuvastati n 20 mg tablet TAKE 1 TABLET BY ORAL ROUTE EVERY DAY 11/02 completed Not Available Not Available Not Available nitrofurant oin monohydrate /macrocryst als 100 mg capsule TAKE 1 CAPSULE BY MOUTH EVERY 12 HOURS FOR 7 DAYS *TAKE WITH FOOD/A MEAL* 12/13 completed Not Available Not Available Not Available duloxetine 30 mg capsule,del ayed release TAKE 1 CAPSULE BY MOUTH EVERY DAY 09/02 completed Not Available Not Available Not Available exenatide 11/17 completed Not Available Not Available Not Available Levemir FlexPen 100 unit/mL (3 mL) solution subcutaneou s insulin pen INJECT 60 UNITS INTO THE SKIN THE MORNING AND 20 UNITS AT BEDTIME active Not Available Not Available No t Available PreviDent 5000 Sensitive 1.1 %-5 % dental paste USE DIRECTED TO BRUSH TEETH 12/13 completed Not Available Not Available Not Available BD Ultra-Fine Short Pen Needle 31 gauge x 5/16 USE TO INJECT INSULIN TWICE A DAY 12/13 completed Not Available Not Available Not Available Zostavax (PF) 19,400 unit/0.65 mL subcutaneou s suspension TO BE ADMINISTE RED BY PHARMACIS T FOR IMMUNIZAT ION 11/02 completed Not Available Not Available Not Available cholecalcif pippa (vitamin D3) 1,250 mcg (50,000 unit) capsule TAKE 1 CAPSULE BY MOUTH ONCE A WEEK FOR 8 WEEKS 05/01 completed Not Available Not Available Not Available fenofibric acid (choline) 135 mg capsule,del ayed release TAKE 1 CAPSULE (135MG) BY ORAL ROUTE EVERY DAY 11/02 completed Not Available Not Available Not Available ropivacaine (PF) 5 mg/mL (0.5 %) injection solution in office 04/02 completed [facility] [phone] Not Available Not Available Not Available OneTouch Verio test strips USE TO TEST ONCE DAILY 05/01 completed Not Available Not Available Not Available Linzess 145 mcg capsule TAKE 1 CAPSULE BY MOUTH EVERY MORNING BEFORE BREAKFAST . active Not Available Not Available No t Available lancets 28 gauge 11/02 completed Not Available Not Available Not Available Vascepa 1 gram capsule TAKE 2 CAPSULES BY MOUTH TWICE A DAY WITH MEALS active Not Available Not Available No t Available Invokana 300 mg tablet TAKE 1 TABLET BY ORAL ROUTE EVERY DAY BEFORE THE FIRST MEAL OF THE DAY active Not Available Not Available No t Available Victoza 3-Sarthak 0.6 mg/0.1 mL (18 mg/3 mL) subcutaneou s pen injector INJECT 1.8MG BY SUBCUTANE OUS ROUTE EVERY DAY 11/02 completed Not Available Not Available Not Available Farxiga 5 mg tablet TAKE 1 TABLET BY ORAL ROUTE EVERY DAY IN THE MORNING 11/02 completed Not Available Not Available Not Available Bydureon 2 mg/0.65 mL subcutaneou s pen injector 11/02 completed Not Available Not Available Not Available Trulicity 0.75 mg/0.5 mL subcutaneou s pen injector INJECT 0.75 MG BY SUBCUTANE OUS ROUTE ONCE A WEEK 09/02 completed Not Available Not Available Not Available Linzess 72 mcg capsule active Not Available Not Available Not Available Fluarix Quad 8587-7948 (PF) 60 mcg (15 mcg x 4)/0.5 mL IM syringe TO BE ADMINISTE RED BY PHARMACIS T FOR IMMUNIZAT ION 11/02 completed Not Available Not Available Not Available Ozempic 1 mg/dose (2 mg/1.5 mL) subcutaneou s pen injector INJECT 1 MG ONCE A WEEK ON Tuesdays completed Not Available Not Available Not Available Ozempic 0.25 mg or 0.5 mg (2 mg/1.5 mL) subcutaneou s pen injector INJECT 1MG WEEKLY ON Tuesdays completed Not Available Not Available Not Available Aimovig Autoinjecto r 140 mg/mL subcutaneou s auto-inject or 11/02 completed Not Available Not Available Not Available OneTouch Delica Plus Lancet 33 gauge USE 1 LANCET DAILY 12/13 completed Not Available Not Available Not Available Fluzone High-Dose 2019-20 (PF) 180 mcg/0.5 mL intramuscul ar syringe TO BE ADMINISTE RED BY PHARMACIS T FOR IMMUNIZAT ION active Not Available Not Available No t Available OneTouch Verio Reflect Meter USE DIRECTED 12/13 completed Not Available Not Available Not Available FreeStyle Isi 2 Sensor kit USE DIRECTED FOR BLOOD SUGAR MONITORIN G AT LEAST THREE TIMES DAILY AND NEEDED 09/02 completed Not Available Not Available Not Available FreeStyle Isi 2 [place] USE READER TO CHECK BLOOD GLUCOSE 12/13 completed Not Available Not Available Not Available Ozempic 1 mg/dose (4 mg/3 mL) subcutaneou s pen injector INJECT 1 MG ONCE A WEEK ON TUESDAYS active Not Available Not Available No t Available Ozempic 0.25 mg or 0.5 mg (2 mg/3 mL) subcutaneou s pen injector INJECT 0.5 MG (0.736 ML) SUBCUTANE OUSLY WEEKLY active Not Available Not Available No t Available Vitals Date Recorded Body height Provider Name an d Address Organization Details Last Updated DateTime 03/21/2023 154.94 cm Amanda Zamora CMA [facility] [employer] 03/21/2023 09:50:50 Date Recorded Body height Body mass index (BMI) Body weight Provider Name and Address Organization Details Last Updated DateTime 04/02/2023 154.94 cm 25.7 kg/m2 08599.56 g DEJON Pereyra [employer] [facility] [employer] 04/02/2023 09:05:12 Date Recorded Body height Body mass index (BMI) Body weight Heart rate Respiratory rate Oxygen saturation Oxygen saturation in Arterial blood by Pulse oximetry Systolic And Diastolic Provider Name and Address Organization Details Last Updated DateTime 154.94 cm 25.7 kg/m2 70853.5 6 g 104 /min 14 /min 99 % 99 % 123/77 mm[Hg] Aurea Carranza [facility] [place] [employer] 4 09:23:27 Date Recorded Body height Body mass index (BMI) Body weight Heart rate Respiratory rate Oxygen saturation Oxygen saturation in Arterial blood by Pulse oximetry Systolic And Diastolic Provider Name and Address Organization Details Last Updated DateTime 4 154.94 cm 25.7 kg/m2 39961.5 6 g 84 /min 14 /min 99 % 99 % 119/72 mm[Hg] Aurea Carranza [facility] [employer] [facility] 4 09:23:21 Date Recorded Body height Provider Name an d Address Organization Details Last Updated DateTime 09/03/2023 154.94 cm Toña Adela [employer] [facility] [employer] [facility] 09/03/2023 09:42:27 Date Recorded Heart rate Systolic And Diastolic Provider Name and Address Organization Details Last Updated DateTime 09/03/2023 78 /min 154/79 mm[Hg] Aaliyah LORNA Garcia [facility] [facility] [employer] 09/03/2023 09:46:52 Social History None recorded. Functional Status Question Answer Note LastModified by Organization D etails LastModified Time What is your level of alcohol consumption? None Information not available 12/13/2022 Mental Status None recorded. Family History Relationship Description Onset Age of this Age Resolved Age Notes LastModified by Organization Details LastModified Time Father Heart disease [id number] Not available 04/25/2022 07:27:31 Maternal Uncle Family history of stroke [id number] Not available 04/25/2022 07:27:31 Sister Diabetes mellitus [id number] Not available 04/25/2022 07:27:31 Mother Heart disease [email or web address] Not available 2023 09:08:12 Notes:brother - cancer Medical History Condition Response BLINDNESS N KIDNEY STONES N MRSA N CARPAL TUNNEL SYNDROME N LUNG DISEASE/DISORDER N HISTORY OF DRUG ABUSE N RADIATION / CHEMOTHERAPY N COPD N SPORTS INJURY N ANKLE PAIN N BLOOD DISEASES N SCHIZOPHRENIA N SHINGLES N SHOULDER PAIN N DEPRESSION (INCLUDING POST ) N BOWEL PROBLEMS N STROKE/TIA N ULCERS N KNEE PAIN N BENIGN PROSTATIC HYPERPLASIA N OBESITY N GERD/NAUSEA N ANEURYSM N URINARY/BLADDER/KIDNEY PROBLEMS N CORONARY ARTERY DISEASE (CAD) N ADDICTION CONCERNS N USE OF BLOOD THINNERS N SKIN PROBLEMS N EMPHYSEMA N MUSCLE,JOINT OR BONE PROBLEMS N DVT N STOMACH ULCERS N BLOOD CLOTS N USE OF NSAIDS N CONCUSSION OR SPINAL TRAUMA N NEUROPATHY N AIDS/HIV N FRACTURES N HYPERTENSION N ELBOW PAIN N TOURETTE'S N Metal allergy N ANXIETY DISORDER N BLOOD TRANSFUSION N ANEMIA/BLOOD DISORDER N BIPOLAR DISORDER N BRONCHITIS N OSTEOARTHRITIS N TUBERCULOSIS N FOOT PROBLEM N HEART VALVE DISORDERS N SOFT TISSUE INJURY N ALLERGIES/HAYFEVER N INFECTIOUS DISEASE N HEART ARRHYTHMIA N INSOMNIA N RHEUMATOID ARTHRITIS N HIGH CHOLESTEROL / HYPERLIPIDEMIA N EDEMA N CHRONIC PAIN SYNDROME N CAROTID BLOCKAGE N BACK / NECK PROBLEMS N HAVE YOU BEEN HOSPITALIZED OR SEEN IN [facility] ER IN THE PAST YEAR ? N BURSITIS N HERNIATED DISC N DIALYSIS N FIBROMYALGIA N OSTEOPOROSIS N ARTHRITIS Y NO SIGNIFICANT PAST MEDICAL HISTORY N PERIPHERAL NEUROPATHY N DIABETES, TYPE Y HEARTBURN / REFLUX N HEPATITIS / LIVER DISEASE N GOUT N SLEEP DISORDER N ALZHEIMER'S DISEASE N HERPES N SEIZURES/EPILEPSY N HEADACHES/MIGRAINES N VASCULAR DISEASE N HIP PAIN N Blood Disorder N DIZZINESS N HEAD TRAUMA OR INJURY N HEART DISEASE/HEART PROBLEMS N MULTIPLE SCLEROSIS N CARDIAC ARRHYTHMIA N CANCER: SPECIFY N ANESTHESIA COMPLICATIONS N ATRIAL FIBRILLATION N AUTOIMMUNE DISEASE N Gynecological HistoryNo gynecological history recorded. Obstetrics History GPAL:G 0 P 0 0 0 0 Past Encounters Encounter ID Performer Location Encounter Start Date Encounter Closed Date Diagnosis/Indication Diagnosis SNOMED-CT Code Diagnosis ICD10 Code Diagnosis Note [id number] Jam Mojica MD [facility]_[address] [address] 11/02/2021 00:00:00 11/02/2021 10:46:15 [id number] Jam Mojica MD [facility] [address] 12/13/2022 08:51:12 12/13/2022 10:19:31 Pain of left knee joint 7259184419 05656 M25.288 [id number] Jam Mojica MD [facility] [address] 03/21/2023 09:27:41 03/21/2023 11:12:08 Pain of left knee joint 3794441620 91092 M25.380 [id number] Alfred French DPM [facility] [place] [address] [address] 04/02/2023 09:02:18 04/02/2023 10:45:47 Onychomycosis of toenails 295356613 B35.1 left great toedebride drx ketoconazo lefollow up for total nail avulsion of the left great toenail [id number] Alfred French DPM [facility] [place] [address] [place] [id number] 04/25/2023 09:17:30 04/25/2023 16:55:41 Onychomycosis of toenails 238077478 B35.1 left great toeprocedu re todaywound care and dressings instructio ns reviewedmo nitor for signs of infection if presents seek medical attention immediatel yrx ketoconazo le - dc until nailbed is healedfoll ow up one week [id number] Alfred French DPM [facility] [place] [address] [place] [id number] 05/02/2023 09:19:34 05/02/2023 14:02:46 Onychomycosis of toenails 523741454 B35.1 left great toeprocedu re healedwoun d care and dressings instructio ns reviewedmo nitor for signs of infection if presents seek medical attention immediatel yrx ketoconazo le - cont dailyfollo w up 4 mo [id number] Alfred French DPM [facility] [place] [address] [place] [id number] 09/03/2023 09:35:06 09/03/2023 11:36:47 Onychomycosis of toenails 570504843 B35.1 left great toeResolve ddiscontin ue ketoconazo lefollow-u p as needed Health Concerns Section Related Observation LastModified by Organization Detai ls LastModified Time None Recorded Concern Status LastModified by Organization Details LastModified Time None Recorded Advance Directives Directive None Recorded Payers Encounter Date Sequence Insurance Name Policy Number Policy Chicas Covered Member ID Chicas Member ID Guarantor Name 03/21/2023 1 [place] Jennifer Samayoa [id number] Jennifer Samayoa 03/21/2023 2 [employer] - [employer] BENEFIT PLAN (POS II) [id number] Jennifer Samayoa [id number] Jennifer Samayoa 04/02/2023 1 [place] Samayoa [id number] Jennifer Samayoa 04/02/2023 2 [employer] - [employer] BENEFIT PLAN (POS II) [id number] Jennifer Samayoa [id number] Jennifer Samayoa 04/25/2023 1 [place] Samayoa [id number] Jennifer Samayoa 04/25/2023 2 [employer] - [employer] BENEFIT PLAN (POS II) [id number] Jennifer Samayoa [id number] Jennifer Samayoa 05/02/2023 1 [place] Jennifer Samayoa [id number] Jennifer Samayoa 05/02/2023 2 [employer] - [employer] BENEFIT PLAN (POS II) [id number] Jennifer Samayoa [id number] Jennifer Samayoa 09/03/2023 1 [place] Jnenifer Samayoa [id number] Jennifer Samayoa 09/03/2023 2 [employer] - [employer] BENEFIT PLAN (POS II) [id number] Jennifer Samayoa [id number] Jennifer Samayoa Notes Date Note Type Note Provider Name and Address Organization Details Recorded Time 04/02/2023 text/html Patient is a 67-year-old female hoop since the office with complaints of thickening and discoloration to the left grade toenail. Patient states she is used several ehrg-clg-qfzrbgi medication's without any significant improvement of the toenail. Patient states that she has lost 90 pounds as a diabetic and is under control at this point. Patient states that she would like to explore options to improve the toenail on the left grade toe. Patient said she has mild discomfort to the area but denies any redness or drainage. Patient denies any other complaints. Alfred French DPM [address] [place] [address], [facility] [address], [place], [address], [place] [facility] [employer] 04/02/2023 10:41:34 04/25/2023 text/html Patient returns for office procedure of the toenail. Denies any new complaints. Denies any changes in health. Understands procedure, risk, benefits, complications of procedure and elects to continue. Alfred French DPM [address], [address], [place], [address], [facility] [employer] [facility] 04/25/2023 10:03:56 05/02/2023 text/html Patient returns for follow up on postoperative nail procedure. Patient has completely healed the nail bed. Denies any new complaints. Patient denies any acute signs of infection. Patient was educated on continuing the use her ketoconazole. Alfred French DPM [address], [address], [place], [address], [facility] [employer] [facility] [employer] [facility] 05/02/2023 14:01:23 09/03/2023 text/html . Patient is a 68-year-old female who returns the office for follow-up onychomycosis of the left great toenail. Patient is doing well she has normal nail but thin and is normal with no signs of infection. Patient denies any other complaints. Alfred French DPM [address], [address], [place], [address], [facility] [employer] [facility] 09/03/2023 10:40:13 OBGyn Episode No OBEpisode recorded.
--- OUTSIDE RECORDS SUMMARY | 2024-07-21 14:17 | XMS_ITS | Encounter Summary ---
Author Organization [employer] Address 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
--- OUTSIDE RECORDS SUMMARY | 2024-07-21 14:17 | XMS_ITS | CONTINUITY OF CARE DOCUMENT ---
Author Name rony uribe Address Unknown Organization [facility] Office Address [address] [place] [address] Phone [phone] Care Team Providers Care Trap Setter Name Role Phone Sharon DUVALL, Kishore Unavailable [phone] SALBADOR BATES NP Unavailable JANA BRUSH MACHINE SETTER, SALBADOR Unavailable [phone] INSURANCE PROVIDERS Payer name Policy type / Coverage type [place] red green party ID AARP MEDICARE ADVANTAGE PLAN 2 O O [id number]
--- OUTSIDE RECORDS SUMMARY | 2024-07-21 14:17 | XMS_ITS | Patient Health Record ---
Author Organization [employer] [facility] Address [address] [place] [address] Care Team Providers Care Highway Technician Name Role Phone Stanford Bui D.O. Primary Care Provider Coby Carr Unavailable [phone] Allergies Allergen (clinical drug ingredient) Drug/Non Drug Allergy documented on EMR Reaction Allergy Type Onset Date Status Anesthetics (uncoded) Unknown Allergy Active Contract dye (uncoded) Unknown Allergy Active Reason For Referral No Information Medications Medication SIG (Take, Route, Frequency, Duration) Notes Start Date End Date Status Clopidogrel Bisulfate Active DULoxetine HCl Activ e Vascepa Active Acetaminophen-Codeine #4 Active metFORMIN HCl ER Act marianela Levothyroxine Sodium Active Lansoprazole Active Aimovig Active Aimovig Active Lisinopril-hydroCHLOROthiazi de Active amLODIPine Besylate Active Zolpidem Tartrate Ac tive Social History Tobacco Use: Social History Observation Description Date Details (start date - stop date) Former Smoker NA - NA Tobacco Use/Smoking Question Answer Notes Are you a former smoker How long has it been since you last smoked? > 10 years Plan Of Treatment No Information Insurance Providers Payer Name Payer Address Payer Phone Subscriber Number Group Number Insured Name Patient Relationship to Insured Coverage Start Date Coverage End Date United [employer] Medicare Complete [address] [address] [place] [address] [id number] [id number] Jennifer Samayoa Self - patient is the insured Medical (General) History Medical History History ICD Code Arthritis, depression, high cholesterol, high blood pressure, migraines, stroke Surgical History Surgery Date(Month/Year)
--- OUTSIDE RECORDS SUMMARY | 2024-07-21 14:17 | XMS_ITS | Clinical Summary ---
Author Organization 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 Gender Identity Not on file Sexual Orientation Not on file Plan of Treatment Health Maintenance Due Date Last Done Comments DEXA Bone Density 1955 Hepatitis C Virus (HCV) Screening 1955 Colonoscopy 1998 Colorectal Cancer Screening 1998 Cologuard 2003 Immunochemical Fecal Occult Blood 2003 Mammogram 2003 Zoster Immunization (2 of 3) 02/09/2016, 12/06/2014 Pneumococcal Immunization (5 0+ years) (2 of 2 - PCV) 12/08/2020 12/09/2019 Influenza Immunization (#1) 2023 12/09/2019 SARS-COV-2 Immunization ( - 2023- season) 2023 Respiratory Syncytial Virus (RSV) Immunization (Adult) (1 - 1-dose 75+ series) 2028 DTaP/Tdap/Td Immunization Discontinued 01/02/2013 TdaP Immunization Completed 01/02/2013 Hepatitis B Immunization Aged Out No longer eligible based on patient's age to complete this topic Meningococcal Immunization (ACWY) Aged Out No longer eligible based on patient's age to complete this topic Rotavirus Immunization Aged Out No lo nger eligible based on patient's age to complete this topic
== END 2024-07-21 14:10 | disposition home or self-care (01) ==
PROVIDERS: PCP Family Medicine; Visit Provider Physician Assistant Medical
DX: I67.82 Cerebral ischemia (principal); G31.9 Degenerative disease of nervous system, unspecified; R29.6 Repeated falls
CPT/HCPCS: 70553; A9579

== ENCOUNTER 2024-08-19 13:38 | Outpatient (CLI) | payer MEDICARE, OTHER, SELFPAY ==
--- NOTE | ~2024-08-19 | US_ITS ---
EXAMINATION: US carotid duplex BI DATE: 08/19/2024 15:53 CDT INDICATION: Cerebral infarction on MRI dated 07/21/2024 TECHNIQUE: Grayscale, color Doppler, and pulsed Doppler images of the cervical carotid arteries were obtained. The degree of vessel stenosis is placed in one of the following categories: normal, <50%, 50-69%, >=7 0% but less than near-occlusion, near-occlusion, or total occlusion. Note that percent stenosis relative to normal distal artery lumen diameter is indirectly measured fro m velocity measurements as described originally by Rudy, et al. Radiology 2003; 229:340-346 and upda barbara by Steve Luna et al STROKE 2012;43(3);915-921. COMPARISON: None. FINDINGS: There is mild atherosclerosis of both carotid arteries. Intimal thickening is detected bilaterally. Peak systolic velocity (in cm/s) is detailed below RIGHT: Right common carotid artery (CCA): 102 cm/s. Right internal carotid artery (ICA) PSV: 64 cm/s. Right ICA end-diastolic velocity (EDV): 9 cm/s. Right ICA/CCA PSV ratio is 0.6. Right external carotid artery (ECA): 87cm/s. There is antegrade flow in the right vertebral artery LEFT: Left common carotid artery (CCA): 87 cm/s. Left internal carotid artery (ICA) PSV: 98 cm/s. Left ICA end-diastolic velocity (EDV): 27 cm/s. Left ICA/CCA PSV ratio is 1.1. Left external carotid artery (ECA): 66cm/s. There is antegrade flow in the left vertebral artery. IMPRESSION: 1. Less than 50% stenosis in the right internal carotid artery. 2. Less than 50% stenosis in the left internal carotid artery. Reviewed, dictated and finalized at location A.
== END 2024-08-19 13:39 | disposition home or self-care (01) ==
PROVIDERS: PCP Family Medicine; Visit Provider Physician Assistant Medical
DX: I65.23 Occlusion and stenosis of bilateral carotid arteries (principal); I63.9 Cerebral infarction, unspecified
CPT/HCPCS: 93880

== ENCOUNTER 2024-09-07 08:28 | Outpatient (CLI) | payer MEDICARE, OTHER, SELFPAY ==
--- OUTSIDE RECORDS SUMMARY | 2024-09-07 08:36 | XMS_ITS | Data Portability ---
Author Organization [place] - [facility] [employer], Main Office Address [address] [place] [address] Care Team Providers Care Data Reporting Analyst Name Role Phone THIAGO HAWTHORNE Primary Care Provider [phone] THIAGO HAWTHORNE Referring Provider Assessment Encounter Date Assessment Date Assessment LastModified [...] This note is dictated and transcribed by [employer]. Pilot Plant Supervisor variances may occur. Despite proofreading, typographical errors may occur. Occasional wrong-word or 'ktewl-o-uiek' substitutions may have occurred due to the [...] gentamicin 0.1 % topical ointment 2023 024 [facility] #[id number], [address], [place], [address], 4 10:01:49 ketoconazol e 2 % topical cream 2023 024 [facility] #[id number], [address], [place], [address], 4 10:33:49 Patient TargetsNo targets recorded. Patient Instructions Encounter Date Encounter Id Patient Instructions Last Modified By Organization Details Last Modified Time 04/25/2023 [id number] paronychia: care instructions Not available 04/25/2023 10:01:47 Reason for Referral None Reported. Problems Name Problem SNOMED Code Status Onset Date Resolution Date Notes Provider Name and Address Organization Details Recorded Time Hammer toe 135648240 Completed 201711/17/2018 Not Available [facility] 3 07:31:51 Hammer toe 357781405 Active 2017 Not Available [facility] 3 07:31:51 Tinea cruris 314752460 Active Not Available [facility] 3 07:31:51 Pain of left knee joint 03908396154 4107 Active 2021 Not Available [facility] 3 07:31:51 Tinea pedis 3808929 Active 2018 Not Available [facility] 3 07:31:51 Vulvitis 01653323 Active Not Available [facility] 3 07:31:51 Diabetes mellitus 26673874 Active Not Available [facility] 3 07:31:51 Onychomyc osis of toenails 086735120 Active 2023 Alfred French DPM [address] [facility], [address], [place], [address] , [facility] [employer] [facility] 4 10:32:58 Notes:thyroid disease Problem Notes None recorded. Procedures Surgical History Date Name Laterality Status Provider Name and Address Organization Details Recorded Time Toenail avulsion completed Alfred French DPM [address], [address], [place], [address], [facility] 04/25/2023 10:03:36 Foot Surgery completed DEJON Pereyra [facility] 04/02/2023 09:08:47 Imaging Results None recorded. Procedure [...] suspension for injection in office 04/02 completed [facility]: 0003- 0494- 20 Not Available Not Available [...] Available Not Available Not Available amoxicillin 875 mg-zbigniew dunbar clavulanate 125 mg tablet TAKE 1 TABLET [...] %) injection solution in office 04/02 completed [facility] [id number] -[phone]- [phone] Not Available Not Available Not [...] Available Not Available Not Available Fluarix Quad 1761-9785 (PF) 60 mcg (15 mcg x 4)/0.5 [...] Not Available Not Available [employer] [place] USE READER TO CHECK BLOOD GLUCOSE 12/13 [...] DateTime 03/21/2023 154.94 cm Amanda Zamora CMA [facility] [employer] 03/21/2023 09:50:50 Date Recorded Body height Body mass index (BMI) Body weight Provider Name and Address Organization Details Last Updated DateTime 04/02/2023 154.94 cm 25.7 kg/m2 81100.56 g DEJON Pereyra [facility] [place] [employer] 04/02/2023 09:05:12 Date Recorded Body height Body mass index (BMI) Body weight Heart rate Respiratory rate Oxygen saturation Oxygen saturation in Arterial blood by Pulse oximetry Systolic And Diastolic Provider Name and Address Organization Details Last Updated DateTime 154.94 cm 25.7 kg/m2 66354.5 6 g 104 /min 14 /min 99 % 99 % 123/77 mm[Hg] Aurea Carranza [facility] [employer] [facility] 4 09:23:27 Date Recorded Body height Body mass index (BMI) Body weight Heart rate Respiratory rate Oxygen saturation Oxygen saturation in Arterial blood by Pulse oximetry Systolic And Diastolic Provider Name and Address Organization Details Last Updated DateTime 154.94 cm 25.7 kg/m2 12865.5 6 g 84 /min 14 /min 99 % 99 % 119/72 mm[Hg] Aurea Carranza [facility] [employer] [facility] 4 09:23:21 Date Recorded Body height Provider Name an d Address Organization Details Last Updated DateTime 09/03/2023 154.94 cm Toña Adela [facility] [facility] 09/03/2023 09:42:27 Date Recorded Heart rate Systolic And Diastolic Provider Name and Address Organization Details Last Updated DateTime 09/03/2023 78 /min 154/79 mm[Hg] Aaliyah Garcia CNA [place] [employer] [facility] [employer] [facility] 09/03/2023 09:46:52 Social History None recorded. Functional Status Question Answer Note LastModified by Organization D etails LastModified Time What is your level of alcohol consumption? None [email or web address] Information not available 12/13/2022 Mental Status None recorded. Family History Relationship Description Onset Age of this Age Resolved Age Notes LastModified by Organization Details LastModified Time Father Heart disease [id number] Not available 04/25/2022 07:27:31 Maternal Uncle Family history of stroke [id number] Not available 04/25/2022 07:27:31 Sister Diabetes mellitus [id number] Not available 04/25/2022 07:27:31 Mother Heart disease [email or web address] Not available 2023 09:08:12 Notes:brother - cancer Medical History Condition Response BLINDNESS N KIDNEY STONES N CARPAL TUNNEL SYNDROME N MRSA N LUNG DISEASE/DISORDER N HISTORY OF DRUG ABUSE N RADIATION / CHEMOTHERAPY N COPD N ANKLE PAIN N SPORTS INJURY N BLOOD DISEASES N SCHIZOPHRENIA N SHINGLES N DEPRESSION (INCLUDING POST ) N SHOULDER PAIN N BOWEL PROBLEMS N STROKE/TIA N KNEE PAIN N ULCERS N BENIGN PROSTATIC HYPERPLASIA N OBESITY N GERD/NAUSEA N ANEURYSM N URINARY/BLADDER/KIDNEY PROBLEMS N CORONARY ARTERY DISEASE (CAD) N ADDICTION CONCERNS N USE OF BLOOD THINNERS N SKIN PROBLEMS N EMPHYSEMA N MUSCLE,JOINT OR BONE PROBLEMS N DVT N STOMACH ULCERS N BLOOD CLOTS N USE OF NSAIDS N CONCUSSION OR SPINAL TRAUMA N NEUROPATHY N AIDS/HIV N FRACTURES N ELBOW PAIN N HYPERTENSION N TOURETTE'S N ANXIETY DISORDER N Metal allergy N BLOOD TRANSFUSION N ANEMIA/BLOOD DISORDER N BIPOLAR DISORDER N BRONCHITIS N OSTEOARTHRITIS N TUBERCULOSIS N FOOT PROBLEM N HEART VALVE DISORDERS N ALLERGIES/HAYFEVER N SOFT TISSUE INJURY N INFECTIOUS DISEASE N HEART ARRHYTHMIA N INSOMNIA N RHEUMATOID ARTHRITIS N HIGH CHOLESTEROL / HYPERLIPIDEMIA N EDEMA N CHRONIC PAIN SYNDROME N CAROTID BLOCKAGE N BACK / NECK PROBLEMS N HAVE YOU BEEN HOSPITALIZED OR SEEN IN [facility] IN THE PAST YEAR ? N BURSITIS [...] SNOMED-CT Code Diagnosis ICD10 Code Diagnosis Note [id number] Jam Mojica MD [facility]_[address] [address] 11/02/2021 00:00:00 11/02/2021 10:46:15 [id number] Jam Mojica MD [facility]_[address] [address] 12/13/2022 08:51:12 12/13/2022 10:19:31 Pain of left knee joint 6449929881 08508 M25.058 [id number] Jam Mojica MD [facility]_[address] [address] 03/21/2023 09:27:41 03/21/2023 11:12:08 Pain of left knee joint 5845514850 63603 M25.806 [id number] Alfred French DPM S[facility] [address] [place] [address] 04/02/2023 09:02:18 04/02/2023 10:45:47 Onychomycosis of toenails 425422885 B35.1 left great toedebride drx ketoconazo lefollow up for total nail avulsion of the left great toenail [id number] Alfred French DPM [facility] [address] [place] [phone] 04/25/2023 09:17:30 04/25/2023 16:55:41 Onychomycosis of toenails 096065388 B35.1 left great toeprocedu re todaywound care and dressings instructio ns reviewedmo nitor for signs of infection if presents seek medical attention immediatel yrx ketoconazo le - dc until nailbed is healedfoll ow up one week [id number] Alfred French DPM [facility] [place] [address] [place] [phone] 05/02/2023 09:19:34 05/02/2023 14:02:46 Onychomycosis of toenails 971427942 B35.1 left great toeprocedu re healedwoun d care and dressings instructio ns reviewedmo nitor for signs of infection if presents seek medical attention immediatel yrx ketoconazo le - cont dailyfollo w up 4 mo [id number] Alfred French DPM [facility] [address] [place] [phone] 09/03/2023 09:35:06 09/03/2023 11:36:47 Onychomycosis of toenails 227889402 B35.1 left great toeResolve ddiscontin ue ketoconazo lefollow-u p as needed Health Concerns Section Related Observation LastModified by Organization Detai ls LastModified Time None Recorded Concern Status LastModified by Organization Details LastModified Time None Recorded Advance Directives Directive None Recorded Payers Insurance Date Sequence Insurance Name Policy Number Policy Chicas Covered Member ID Chicas Member ID Guarantor Name 08/31/2023 2 [employer] - MAIL [employer] BENEFIT PLAN (POS II) [id number] Jennifer Samayoa [id number] Jennifer Samayoa 08/31/2023 1 [place] Jennifer Samayoa [id number] Jennifer Samayoa Notes Date Note Type Note Provider Name and Address Organization Details Recorded Time 04/02/2023 text/html Patient is a 67-year-old female hoop since the office with complaints of thickening and discoloration to the left grade toenail. Patient states she is used several ontg-xkf-qpxqawv medication's without any significant improvement of the [...] denies any other complaints. Alfred French DPM [address] [email or web address], [place], [address], [employer] 04/02/2023 10:41:34 04/25/2023 text/html Patient returns for office procedure of the toenail. Denies any new complaints. Denies any changes in health. Understands procedure, risk, benefits, complications of procedure and elects to continue. Alfred French DPM [address], [place], [address], [employer] 04/25/2023 10:03:56 05/02/2023 text/html Patient returns for follow up on postoperative nail procedure. Patient has completely healed the nail bed. Denies any new complaints. Patient denies any acute signs of infection. Patient was educated on continuing the use her ketoconazole. Alfred French DPM [address] [email or web address], [place], [address], [facility] 05/02/2023 14:01:23 09/03/2023 text/html . Patient is a 68-year-old female who returns the office for follow-up onychomycosis of the left great toenail. Patient is doing well she has normal nail but thin and is normal with no signs of infection. Patient denies any other complaints. Alfred French, PIERO [address] [facility], [facility] [address], [place], [address], [facility] [place] [employer] 09/03/2023 10:40:13 OBGyn Episode No OBEpisode recorded.
--- OUTSIDE RECORDS SUMMARY | 2024-09-07 08:36 | XMS_ITS | Patient Health Record ---
Author Organization [employer] [facility] Address [address] [facility] [address] [place] [address] Care Team Providers Care Surface Hydrologist Name Role Phone Stanford Bui D.O. Primary Care Provider Coby Carr Unavailable [phone] Allergies Allergen (clinical drug ingredient) Drug/Non Drug [...] Date United [employer] Medicare Complete [address] [address] [place] [address] [id number] Jennifer Samayoa Self - patient is the insured Medical (General) History Medical History History ICD Code Arthritis, depression, high cholesterol, high blood pressure, migraines, stroke Surgical History Surgery Date(Month/Year)
--- OUTSIDE RECORDS SUMMARY | 2024-09-07 08:36 | XMS_ITS | Encounter Summary ---
Author Organization [employer] Address 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
--- OUTSIDE RECORDS SUMMARY | 2024-09-07 08:36 | XMS_ITS | Clinical Summary ---
Author Organization 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
--- OUTSIDE RECORDS SUMMARY | 2024-09-07 08:36 | XMS_ITS | Clinical Summary ---
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
--- NOTE | 2024-09-07 08:51 | ECHO_ITS ---
Patient Info Name: Jennifer Samayoa Age: 69 years : 1955 Gender: Female Ht: 62 in Wt: 125 lbs BSA: 1.58 m2 HR: 80 bpm BP: 173 / 93 mmHg Heart Rhythm: Sinus Rhythm Technical Quality: Good Exam Date: 09/07/2024 8:57 AM Patient Status: O Admit Date: 09/07/2024 Exam Type: CA echo doppler color flow Complete two-dimensional, color flow and Doppler transthoracic echocardiogram is performed. Strain analysis performed. Slat Basket [employer] Hel[employer] Machine: Kimberley Matute Attending Provider: Jocelyn Cheatham Summary 1. Complete two-dimensional, color flow and Doppler transthoracic echocardiogram is performed. 2. Left ventricular chamber dimension is normal. 3. Left ventricular systolic function is normal, estimated at 60-65. 4. The left ventricular diastolic function is grade I diastolic dysfunction. 5. Global longitudinal strain is normal at -17.5%. 6. E/e' 10 is mildly elevated. 7. Left atrial chamber dimension is mildly enlarged. 8. There is mild aortic valve sclerosis. 9. No pulmonary hypertension, estimated pulmonary arterial systolic pressure is 29 mmHg. Left Ventricle E/e' 10 is mildly elevated. Left ventricular chamber dimension is normal. Left ventricular systolic function is normal, estimated at 60-65. The left ventricular diastolic function is grade I diastolic dysfunction. Global longitudinal strain is normal at -17.5%. Right Ventricle Right ventricular chamber dimension is normal. Right ventricular systolic function is normal and with normal TAPSE 2.1 cm. Left Atria Left atrial chamber dimension is mildly enlarged. Right Atria Right atrial chamber dimension is normal. Aortic Valve The aortic valve is probable trileaflet. There is mild aortic valve sclerosis. There is no aortic valve stenosis. There is no aortic valve regurgitation. Pulmonic Valve There is no pulmonic regurgitation. Mitral Valve There is no mitral valve stenosis. There is no mitral valve regurgitation. Tricuspid Valve There is no tricuspid valve regurgitation. No pulmonary hypertension, estimated pulmonary arterial systolic pressure is 29 mmHg. Pericardium/Pleural There is no pericardial effusion. Inferior Vena Cava Normal inferior vena cava with >50% collapse upon inspiration consistent with normal right atrial pressure, 5 mmHg. Aorta The aortic root size at the sinus of Valsalva is normal. Left Ventricular Outflow Tract Name Value Normal LVOT 2D LVOT Diameter 2.0 cm LVOT Doppler LVOT Peak Velocity 125 cm/s LVOT Peak Gradient 6 mmHg LVOT Mean Gradient 3 mmHg LVOT VTI 22 cm LVOT VTI/AV VTI Ratio 0.9 LVOT Stroke Volume 67 ml LVOT CO 4.8 l/min LVOT CI 3.0 l/min/m2 Pulmonic Valve Name Value Normal RVOT Doppler RVOT Peak Velocity 83 cm/s RVOT Peak Gradient 3 mmHg PV Doppler PV Peak Velocity 117 cm/s PV Peak Gradient 5 mmHg Mitral Valve Name Value Normal MV Diastolic Function MV E Peak Velocity 84 cm/s MV A Peak Velocity 127 cm/s MV E/A 0.7 MV Decel Time (PW) 231 ms MV Annular TDI MV E/e' (Septal) 15.0 MV E/e' (Lateral) 7.9 MV E/e' (Average) 11.4 Tricuspid Valve Name Value Normal TV Regurgitation Doppler TR Peak Velocity 243 cm/s TR Peak Gradient 24 mmHg Estimated PAP/RSVP RA Pressure 5 mmHg <=5 PA Systolic Pressure 29 mmHg <36 RV Systolic Pressure 29 mmHg <36 TV Annular TDI TV Lateral Jayna s' Velocity 10.0 cm/s >=9.5 Aorta Name Value Normal Ascending Aorta Ao Root Diameter (MM) 2.3 cm Ao Root Diam Index (MM) 1.5 cm/m2 Aortic Valve Name Value Normal AV Doppler AV Peak Velocity 146 cm/s AV Peak Gradient 9 mmHg AV Mean Gradient 4 mmHg AV VTI 25 cm AV Area (Cont Eq VTI) 2.7 cm2 >=3.0 AV Area (Cont Eq Sung) 2.6 cm2 AV DI (Sung) 0.86 AV Regurgitation 2D LVOT Area 3.1 cm2 Ventricles Name Value Normal LV Dimensions 2D/MM IVS Diastolic Thickness (2D) 0.8 cm 0.6-1.0 LVID Diastole (2D) 5.0 cm 3.8-5.2 LVIW Diastolic Thickness (2D) 0.8 cm 0.6-0.9 LVID Systole (2D) 3.4 cm 2.2-3.5 LVOT Diameter 2.0 cm LV Mass (2D Cubed) 142.13 g 67.00-162.00 LV Mass Index (2D Cubed) 90 g/m2 43-95 Relative Wall Thickness (2D) 0.32 <=0.42 LV Fractional Shortening/Ejection Fraction 2D/MM LV Fractional Shortening (2D) 32 % 27-45 LV EF (2D [place]) 60 % LV Diastolic Volume (4C MOD) 54 ml LV EF (4C MOD) 66 % LV Diastolic Volume (2C MOD) 58 ml LV EF (2C MOD) 66 % LV Diastolic Volume (BP MOD) 56 ml 46-106 LV Diastolic Volume Index (BP MOD) 36 ml/m2 29-61 LV Systolic Volume (BP MOD) 19 ml 14-42 LV Systolic Volume Index (BP MOD) 12 ml/m2 8-24 LV EF (BP MOD) 67 % 54-74 LV Diastolic Length (4C) 7.5 cm LV Systolic Length (4C) 5.8 cm LV Stroke Volume (4C MOD) 36 ml Atria Name Value Normal LA Dimensions LA Dimension (MM) 2.7 cm 2.7-3.8 LA Volume (4C A-L) 44 ml LA Volume (BP A-L) 48 ml RA Dimensions RA Area (4C) 11.2 cm2 <=18.0 EchoPAC Name Value Normal ANTON LV Apical Anterior Longitudinal Strain (ANTON) -15.9 % LV Apical Anteroseptal Longitudinal Strain (ANTON) -26.6 % LV Apical Inferior Longitudinal Strain (ANTON) -19.5 % LV Apical Lateral Longitudinal Strain (ANTON) -19.4 % LV Apical Posterior Longitudinal Strain (ANTON) -19.7 % LV Apical Septal Longitudinal Strain (ANTON) -20.0 % AV Closure (ANTON) 371 ms LV Basal Anterior Longitudinal Strain (ANTON) -17.4 % LV Basal Anteroseptal Longitudinal Strain (ANTON) -19.1 % LV Basal Inferior Longitudinal Strain (ANTON) -15.8 % LV Basal Anterolateral Longitudinal Strain (ANTON) -14.5 % LV Basal Inferolateral Longitudinal Strain (ANTON) -11.1 % LV Basal Inferoseptal Longitudinal Strain (ANTON) -12.9 % LV Global Longitudinal Strain (2C ANTON) -17.2 % LV Global Longitudinal Strain (4C ANTON) -17.4 % LV Global Longitudinal Strain (APLAX ANTON) -17.9 % LV Global Longitudinal Strain (ANTON) -17.5 % LV Mid Anterior Longitudinal Strain (ANTON) -16.0 % LV Mid Anteroseptal Longitudinal Strain (ANTON) -24.2 % LV Mid Inferior Longitudinal Strain (ANTON) -17.4 % LV Mid Anterolateral Longitudinal Strain (ANTON) -15.3 % LV Mid Inferolateral Longitudinal Strain (ANTON) -11.3 % LV Mid Inferoseptal Longitudinal Strain (ANTON) -16.8 % Report Signatures
== END 2024-09-07 08:29 | disposition home or self-care (01) ==
LOC: ANHCARD 08:29
PROVIDERS: PCP Family Medicine; Visit Provider Physician Assistant Medical
DX: R93.1 Abnormal findings on diagnostic imaging of heart and coronary circulation (principal); I63.9 Cerebral infarction, unspecified
CPT/HCPCS: 93306